=== PATIENT | female | born 1970 | race Caucasian/White ===

== ENCOUNTER 2016-09-28 08:17 | Emergency (ER) | payer MEDICAID ==
[~2016-09-28] VITALS: Wt 69.0 kg
[~2016-09-28 08:17] MED LIST: BENA10TA48 PO; CHOL50009 PO; FER325 PO; GLIP5TAB13 PO; LEVO100T87 PO; RANI150T9 PO
[2016-09-28] MEDS ORDERED: KETOROLAC 30 MG INJ IV STA (08:47)
[2016-09-28] MEDS ORDERED: ONDANSETRON 4 MG INJ IV STA (08:47)
[2016-09-28] MEDS ORDERED: SOD CHLORIDE 0.9% 1,000 ML IV STA (08:47)
--- NOTE | 2016-09-28 08:48 | ERD ---
ER Documentation Chief Complaint Date/Time DATE: 09/28/16 TIME: 08:48 Chief Complaint nausea and vomiting intermittent diarrhea for the past few days. HPI This is a 46-year-old female that has noted history of hypertension, dyslipidemia, who indicates she ran out of her benazepril 10 mg daily prescription, 3 days prior to arrival. She however denies a headache or chest pain. She has been experiencing right upper quadrant pain with intermittent nausea nonbloody nonbilious emesis for the past 48 hours. She denies any shortness of breath at rest or exertion. The patient had a previous surgical intervention roughly 20 years prior to arrival for the patient stated she is unsure why the surgery occurred but she had a suspected infection with no colostomy. The patient also has a known history of hemorrhoids but denies any hemoptysis hematemesis or melanotic stools. She has no polyuria polydipsia. She has had no fevers or shaking or chills. She denies any frequency urgency or dysuria ROS All systems reviewed and are negative except as per history of present illness. Medications Home Meds Active Scripts Benazepril Hcl* (Benazepril Hcl*) 10 Mg Tablet, 10 MG PO DAILY, #30 TAB Prov:KAYE OABNDO 09/28/16 Azithromycin* (Zithromax*) 250 Mg Tablet, 250 MG PO .PARMINDER DIRECTED, #6 TAB TAKE 500 MG (2 TABS) THE FIRST DAY THEN 250 MG (1 TAB) DAYS 2-5 Prov:KAYE OBANDO 09/28/16 Glipizide* (Glipizide*) 5 Mg Tablet, 5 MG PO AC BREAKFAST for 30 Days, TAB Prov:ROS PRITCHETT NP 04/20/16 Ranitidine Hcl* (Zantac*) 150 Mg Tablet, 150 MG PO BID Y for EPIGASTRIC PAIN, # 30 TAB Prov:BHASKAR HOWARD DO 04/15/16 Reported Medications Ferrous Sulfate* (Ferrous Sulfate*) 325 Mg Tabec, 325 MG PO BID, TAB 03/11/16 Cholecalciferol* (Vitamin D*) 5,000 Unit Tablet, 5000 UNIT PO DAILY, TAB 01/01/16 Benazepril Hcl* (Benazepril Hcl*) 10 Mg Tablet, 10 MG PO DAILY, #30 TAB 01/01/16 Levothyroxine Sodium* (Levothyroxine Sodium*) 100 Mcg Tablet, 100 MCG PO BEFORE BREAKFAST, #30 TAB 01/01/16 Allergies Allergies: Coded Allergies: No Known Allergy (Unverified , 04/15/16) PMhx/Soc Medical and Surgical Hx: pt denies Medical Hx History of Surgery: Yes (23 yrs ago - intestinal Sx) Anesthesia Reaction: No Hx Neurological Disorder: No Hx Respiratory Disorders: No Hx Cardiac Disorders: No Hx Psychiatric Problems: No Hx Miscellaneous Medical Probl: No Hx Alcohol Use: Yes (socially) Hx Substance Use: No Hx Tobacco Use: No Smoking Status: Never smoker Physical Exam Vitals Vital Signs Date Time Temp Pulse Resp B/P Pulse Ox O2 Delivery O2 Flow Rate FiO2 09/28/16 11:40 78 19 134/95 100 Room Air 09/28/16 10:24 86 136/76 09/28/16 10:00 172/94 09/28/16 09:13 84 179/88 09/28/16 08:19 98.9 93 20 169/81 98 Physical Exam Constitutional:Well-developed. Well-nourished. HEENT:Normocephalic. Atraumatic.Pupils were equal round reactive to light. Moist mucous membranes.No tonsillar exudates. Neck: No nuchal rigidity. No lymphadenopathy. No posterior cervical spine tenderness or step-offs. Respiratory: Not using accessory muscles of respiration.Lungs were clear to auscultation bilaterally. No rhonchi. No rales. No wheezing. Cardiovascular: Regular rate regular rhythm.No murmurs. No rubs were appreciated.S1, S2 normal. Distal pulses are palpable 2+ bilaterally. GI: Abdomen was soft. Mild tenderness in the right upper quadrant negative Nguyen sign. Previous surgical incisions are below the umbilicus Non Distended. No pulsatile abdominal masses or bruits. No rebound. No guarding. Bowel sounds were present and normal. Muscle skeletal: Full range of motion of both the upper and lower extremities bilaterally.Normal muscle tone.No assymetrical calf tenderness or swelling. Skin: No petechia, no purpura. No lesions on the palms or the soles of the feet. No maculopapular rash. NEURO: Patient was alert, awake, orientated x3.No facial droop. Gait observed and normal with no ataxia.Speech had regular rate and rhythm. No focal neurological deficits. Result Diagram: 09/28/1690409/28/16904 Results 24 hrs Laboratory Tests Test 09/28/16 09:05 09/28/16 09:10 White Blood Count 9.410^3/ul Red Blood Count 5.0610^6/ul Hemoglobin 13.3g/dl Hematocrit 42.1% Mean Corpuscular Volume 83.2fl Mean Corpuscular Hemoglobin 26.3pg Mean Corpuscular Hemoglobin Concent 31.6g/dl Red Cell Distribution Width 14.5% Platelet Count 55313^3/UL Mean Platelet Volume 9.0fl Neutrophils % 72.2% Lymphocytes % 20.2% Monocytes % 5.0% Eosinophils % 1.7% Basophils % 0.4% Nucleated Red Blood Cells % 0.0/100WBC Neutrophils # 6.810^3/ul Lymphocytes # 1.910^3/ul Monocytes # 0.510^3/ul Eosinophils # 0.210^3/ul Basophils # 0.010^3/ul Nucleated Red Blood Cells # 0.010^3/ul Sodium Level 138mmol/L Potassium Level 3.9mmol/L Chloride Level 100mmol/L Carbon Dioxide Level 25mmol/L Anion Gap 17 Blood Urea Nitrogen 16mg/dl Creatinine 0.57mg/dl Glucose Level 139mg/dl Calcium Level 9.0mg/dl Total Bilirubin 0.6mg/dl Direct Bilirubin 0.00mg/dl Indirect Bilirubin 0.6mg/dl Aspartate Amino Transf (AST/SGOT) 100IU/L Alanine Aminotransferase (ALT/SGPT) 105IU/L Alkaline Phosphatase 189IU/L Troponin I < 0.012ng/ml Total Protein 8.2g/dl Albumin 4.3g/dl Globulin 3.90g/dl Albumin/Globulin Ratio 1.10 Amylase Level 166U/L Lipase 217U/L Ethyl Alcohol Level < 10.0mg/dl Urine Color LT. YELLOW Urine Clarity CLEAR Urine pH 6.0 Urine Specific [place] <=1.005 Urine Ketones NEGATIVE Urine Nitrite NEGATIVE Urine Bilirubin NEGATIVE Urine Urobilinogen 0.2 E.U./dL Urine Leukocyte Esterase TRACE Urine Microscopic RBC 2-5/HPF Urine Microscopic WBC 0-2/HPF Urine Squamous Epithelial Cells FEW Urine Bacteria FEW Urine Hemoglobin 1+ Urine Glucose NEGATIVE% Urine Total Protein NEGATIVE Current Medications Medications (Trade) Dose Ordered Sig/Carri Route PRN Reason Start Time Stop Time Status Last Admin Dose Admin Sodium Chloride (NS) 1,000 ml @ 1,000 mls/hr Q1H STAT IV 09/28/16 08:47 09/28/16 09:46 DC 09/28/16 09:08 Ondansetron HCl (Zofran Inj) 4 mg ONCE STAT IV 09/28/16 08:47 09/28/16 08:50 DC 09/28/16 09:08 Ketorolac Tromethamine (Toradol) 30 mg ONCE STAT IV 09/28/16 08:47 09/28/16 08:50 DC 09/28/16 09:08 Labetalol HCl (Labetalol) 10 mg ONCE ONCE IV 09/28/16 09:30 09/28/16 09:31 Cancel Clonidine (Catapres) 0.1 mg ONCE ONCE PO 09/28/16 09:30 09/28/16 09:31 DC 09/28/16 09:16 Procedures/MDM The patient presented to the emergency department with epigastric pain. My differential diagnosis included but was not limited to abdominal aortic aneurysm , choledocholithiasis, gallstone ileus, renal colic, pyelonephritis, pancreatitis, peptic ulcer disease, atypical myocardical infarction, mesenteric ischemia, GERD, pulmonary infarction. The patient was placed on a cardiac technologist, continuous pulse oximetry and IV access was established by nursing staff. An EKG was obtained to rule out myocardial ischemia. There was no elevation of LFTs to suggest ductal obstruction, cholangitis, cholecystiitis or hepatitis. Given that the urinalysis did not show bilirubinuria, my suspicion for common duct obstruction or hepatitis was low. 12 Lead EKG tracing ordered and reviewed by myself showed: Sinus bradycardia 47 bpm and no arrhythmia. CA interval normal. QRS duration normal. No ST segment elevation No ST segment depression. No changes consistent with acute ischemia. I obtained an ultrasound of the gallbladder reviewed by the radiologist myself which indicated there is no evidence of cholelithiasis. The patient received IV fluids and intravenous morphine and Zofran for analgesic control. Observation Note: Time: 4 hours Family Hx: No Hypertension Evaluation: Multiple exams showed improving symptoms and no evidence of peritoneal signs that could suggest a surgical abdomen. Her pain is completely resolved at the time of discharge. The patient also had an episode of hypotension in the emergency department but no signs of endorgan damage to suggest hypertensive emergency or urgency. She was given clonidine with resolution of her blood pressure The patient was discharged home in fair condition. They were instructed to return to the emergency department at any time if there was any worsening of their condition. The patient stated they would follow up with their PCP in the next 24-48 hours to initiate a suitable medication regimen under the care of their PCP as well as to allow their PCP to monitor any drug reactions. The patient was discharged home with prescriptions after they gave informed consent to the new medication. They were also fully informed by myself on the adverse effects and adverse drug interactions in order to provide adequate safeguards to prevent possible adverse reactions to medications. Patient was given a medication refill of her benazepril Departure Diagnosis: Primary Impression: Nausea and vomiting Vomiting type: unspecified Vomiting Intractability: non-intractable Qualified Code: R11.2 - Non-intractable vomiting with nausea, unspecified vomiting type Additional Impressions: Epigastric abdominal pain Medication refill Condition: Fair KAYE OBANDO Sep 28, 2016 08:48
[2016-09-28 09:24] LABS: BASOPHILS % 0.4 % (0.0-2.0); EOSINOPHILS # 0.2 10^3/ul (0.0-0.5); EOSINOPHILS % 1.7 % (0.0-7.0); HEMATOCRIT 42.1 % (37.0-47.0); HEMOGLOBIN 13.3 g/dl (12.0-16.0); LYMPHOCYTES # 1.9 10^3/ul (0.8-2.9); LYMPHOCYTES % 20.2 % (15.0-51.0); MEAN CORPUSCULAR HEMOGLOBIN 26.3 pg (29.0-33.0); MEAN CORPUSCULAR HGB CONC 31.6 g/dl (32.0-37.0); MEAN CORPUSCULAR VOLUME 83.2 fl (82.0-101.0); MONOCYTE # 0.5 10^3/ul (0.3-0.9); NEUTROPHIL # 6.8 10^3/ul (1.6-7.5); NEUTROPHILS % 72.2 % (39.0-77.0); PLATELET COUNT 226 10^3/UL (140-415); RED BLOOD COUNT 5.06 10^6/ul (4.20-5.40); RED CELL DISTRIBUTION WIDTH 14.5 % (11.5-14.5); WHITE BLOOD COUNT 9.4 10^3/ul (4.8-10.8)
[2016-09-28 09:25] LABS: ADD SCAN DIFF NO
[2016-09-28] MEDS ORDERED: LABETALOL HCL 20MG INJ IV ONE (09:30)
[2016-09-28 09:34] LABS: ADD UMIC YES; URINE BILIRUBIN (Dip) NEGATIVE (NEGATIVE); URINE BLOOD (Dip) 1+ (NEGATIVE); URINE COLOR LT. YELLOW (YELLOW); URINE GLUCOSE (Dip) NEGATIVE (NEGATIVE); URINE KETONES (Dip) NEGATIVE (NEGATIVE); URINE LEUKOCYTE ESTERASE (Dip) TRACE (NEGATIVE); URINE NITRITE (Dip) NEGATIVE (NEGATIVE); URINE TOTAL PROTEIN (Dip) NEGATIVE (NEGATIVE); URINE UROBILINOGEN (Dip) 0.2 E.U./dL (0.1-1.0)
[2016-09-28 09:35] LABS: ALBUMIN 4.3 g/dl (3.3-4.9); CHLORIDE 100 mmol/L (97-110)
[2016-09-28 09:36] LABS: POTASSIUM 3.9 mmol/L (3.5-5.1); SODIUM 138 mmol/L (135-144)
[2016-09-28 09:38] LABS: AMYLASE 166 U/L (11-123); ANION GAP 17 (8-16); BILIRUBIN,INDIRECT 0.6 mg/dl (0-1.1); BILIRUBIN,TOTAL 0.6 mg/dl (0.2-1.3); CARBON DIOXIDE 25 mmol/L (21-31); CREATININE 0.57 mg/dl (0.44-1.00)
[2016-09-28 09:39] LABS: ALANINE AMINOTRANSFERASE 105 IU/L (13-69); ALKALINE PHOSPHATASE 189 IU/L (42-121); ASPARTATE AMINO TRANSFERASE 100 IU/L (15-46); BLOOD UREA NITROGEN 16 mg/dl (7-20); GLUCOSE 139 mg/dl (70-220); TOTAL PROTEIN 8.2 g/dl (6.1-8.1)
--- NOTE | 2016-09-28 09:44 | RADRPT ---
PROCEDURE: Right upper quadrant abdominal ultrasound. CLINICAL INDICATION: Abdominal pain TECHNIQUE: Panda scale and color doppler ultrasound images of the right upper quadrant. COMPARISON: CT abdomen pelvis 04/17/2016 FINDINGS: Pancreas: Visualized portions appear of normal echogenicity, no focal lesions. Liver: Morphology: Normal in size and contour. Echogenicity: Increased echogenicity of the liver parenchyma suggestive of hepatic steatosis. Focal lesions: None. Main portal vein: Patent with hepatopetal flow. Biliary System: Normal appearing gallbladder wall. No gallstones seen. No intrahepatic biliary dilatation. Common bile duct measures 3.5 mm in maximal dimension. Kidneys: Right 11.0 cm in length. Right renal cortical thickness is preserved. Normal echogenicity. No hydronephrosis. No renal calculi. No focal lesions. No free fluid identified. IMPRESSION: Normal gallbladder without gallstones. RPTAT: AADD .Martin Wright MD, MD Date Time Electronically viewed and signed by .Martin Wright MD, on 09/28/2016 09:44 .B/
[2016-09-28 09:53] LABS: BACTERIA,URINE FEW; SQUAMOUS EPITHELIAL CELL,UR FEW
[2016-09-28 09:55] LABS: TROPONIN-I < 0.012 ng/ml (0.00-0.12)
[2016-09-28] MEDS ORDERED: AZIT250T94 PO (11:15)
[2016-09-28] MEDS ORDERED: BENA10TA48 PO (11:32)
[2016-09-28 11:40] VITALS: BP 134/95; PULSE 78; RESP 19
== END 2016-09-28 11:12 | disposition home or self-care (01) ==
LOC: FTE 08:17
DX: R11.2 Nausea with vomiting, unspecified (principal); R10.13 Epigastric pain; Z76.0 Encounter for issue of repeat prescription
CPT/HCPCS: 76705; 80053; 80306; 81001; 82150; 83690; 84484; 85025; 87086; 93005; J1885; J2405; J7030; Z7610; 36415; 81003; 96374; 96375

== ENCOUNTER 2016-11-08 22:07 | Emergency (ER) | payer MEDICAID ==
[~2016-11-08] VITALS: Ht 162.6 cm; Wt 72.5 kg
[~2016-11-08 22:07] MED LIST changes: +AZIT250T94 PO
[2016-11-08 22:10] VITALS: Ht 162.6 cm; Wt 72.5 kg
[2016-11-08] MEDS ORDERED: ONDANSETRON 4 MG INJ IV STA ×2 (22:53→23:30)
[2016-11-08] MEDS ORDERED: hydrALAzine 20 MG INJ IV ONE (23:00)
--- NOTE | 2016-11-08 23:28 | RADRPT ---
PROCEDURE: CT Head without. CLINICAL INDICATION: Hypertension, vomiting. TECHNIQUE: The study was performed utilizing a multi-slice, multidetector CT scanner. Direct spira l 1 mm axial sections were obtained through the head without the use of intravenous contrast materia l. 1 or more of the following dose reduction techniques were utilized: Automated exposure control, adjustment of the mA and/or kV according to patient's size, iterative reconstruction technique. Co jacqueline and sagittal reformations were obtained. The images were reviewed on a PACS workstation. RADIATION DOSE: CTDIvol: 44.5 mGyDLP: 720.2 mGy-cm COMPARISON: No prior studies are available for comparison. FINDINGS: There is no intracranial hemorrhage, extra-axial fluid collection, mass lesion, midline shift or hyd rocephalus. The ventricles, sulci and cisterns are within normal limits. The white matter is unrem arkable. The porter-white matter differentiation is preserved. The basal cisterns are patent. The m idline structures are intact. The orbits, calvarium and extracranial soft tissues are normal in [place]. The visualized paranasal sinuses, mastoid air cells and middle ear cavities are normally ae rated. IMPRESSION: 1. No acute intracranial abnormality. No intracranial hemorrhage, extra-axial fluid collection, ma ss lesion or hydrocephalous. RPTAT: HGAS .Evelio Danielle MD, MD Date Time Electronically viewed and signed by .Evelio Danielle MD, MD on 11/08/2016 23:28 .S/
[2016-11-08 23:30] LABS: ADD SCAN DIFF NO
--- NOTE | 2016-11-08 23:30 | RADRPT ---
PROCEDURE: XR Chest. CLINICAL INDICATION: Chest pain. TECHNIQUE: AP view of the chest was obtained. COMPARISON: 04/16/2016 FINDINGS: The cardiomediastinal silhouette is within normal limits. The lungs are clear. No signs of pleural f luid or pneumothorax are seen. The osseous structures and soft tissues are unremarkable. IMPRESSION: 1. No evidence for active cardiopulmonary disease. RPTAT: HGAS .Evelio Danielle MD, MD Date Time Electronically viewed and signed by .Evelio Danielle MD, on 11/08/2016 23:29 .S/
[2016-11-08 23:37] LABS: BASOPHIL # 0.1 10^3/ul (0.0-0.1); BASOPHILS % 0.7 % (0.0-2.0); EOSINOPHILS % 0.4 % (0.0-7.0); HEMATOCRIT 41.5 % (37.0-47.0); HEMOGLOBIN 13.8 g/dl (12.0-16.0); LYMPHOCYTES % 36.6 % (15.0-51.0); MEAN CORPUSCULAR HEMOGLOBIN 25.9 pg (29.0-33.0); MEAN CORPUSCULAR HGB CONC 33.3 g/dl (32.0-37.0); MEAN CORPUSCULAR VOLUME 77.9 fl (82.0-101.0); MEAN PLATELET VOLUME 9.9 fl (7.4-10.4); MONOCYTE # 0.4 10^3/ul (0.3-0.9); MONOCYTES % 4.8 % (0.0-11.0); NEUTROPHIL # 4.7 10^3/ul (1.6-7.5); NEUTROPHILS % 57.3 % (39.0-77.0); PLATELET COUNT 246 10^3/UL (140-415); RED BLOOD COUNT 5.33 10^6/ul (4.20-5.40); RED CELL DISTRIBUTION WIDTH 14.8 % (11.5-14.5); WHITE BLOOD COUNT 8.2 10^3/ul (4.8-10.8)
[2016-11-08 23:52] LABS: ADD UMIC YES; URINE BILIRUBIN (Dip) NEGATIVE (NEGATIVE); URINE BLOOD (Dip) 2+ (NEGATIVE); URINE COLOR LT. YELLOW (YELLOW); URINE GLUCOSE (Dip) NEGATIVE (NEGATIVE); URINE KETONES (Dip) NEGATIVE (NEGATIVE); URINE LEUKOCYTE ESTERASE (Dip) TRACE (NEGATIVE); URINE NITRITE (Dip) NEGATIVE (NEGATIVE); URINE TOTAL PROTEIN (Dip) 1+ (NEGATIVE); URINE UROBILINOGEN (Dip) 1.0 E.U./dL (0.1-1.0)
[2016-11-09 00:29] LABS: SQUAMOUS EPITHELIAL CELL,UR MODERATE
[2016-11-09 00:30] LABS: BACTERIA,URINE OCCASIONAL
[2016-11-09 00:37] LABS: INR 1.2; PROTIME 15.3 Sec (12.2-14.2); PT RATIO 1.2
[2016-11-09 00:38] LABS: PARTIAL THROMBOPLASTIN TIME 27.5 Sec (25.0-35.0)
[2016-11-09 00:47] LABS: ALANINE AMINOTRANSFERASE 181 IU/L (13-69); ALBUMIN 4.4 g/dl (3.3-4.9); ALBUMIN/GLOBULIN RATIO 1.25; ALKALINE PHOSPHATASE 146 IU/L (42-121); ANION GAP 22 (8-16); ASPARTATE AMINO TRANSFERASE 194 IU/L (15-46); BILIRUBIN,INDIRECT 1.1 mg/dl (0-1.1); BILIRUBIN,TOTAL 1.1 mg/dl (0.2-1.3); BLOOD UREA NITROGEN 6 mg/dl (7-20); CALCIUM 8.3 mg/dl (8.4-10.2); CARBON DIOXIDE 21 mmol/L (21-31); CHLORIDE 98 mmol/L (97-110); CREATININE 0.51 mg/dl (0.44-1.00); GLUCOSE 193 mg/dl (70-220); POTASSIUM 3.5 mmol/L (3.5-5.1); SODIUM 137 mmol/L (135-144); TOTAL PROTEIN 7.9 g/dl (6.1-8.1)
[2016-11-09 00:55] LABS: B-TYPE NATRIURETIC PEPTIDE 30 PG/ML (0-125); TROPONIN-I < 0.012 ng/ml (0.00-0.12)
[2016-11-09] MEDS ORDERED: METOCLOPRAMIDE 10 MG INJ IV ONE (01:00)
--- NOTE | 2016-11-09 02:14 | ERD ---
ER Documentation Chief Complaint Date/Time DATE: 11/09/16 TIME: 02:13 Chief Complaint hypertension, vomiting x 2 days HPI This is a 46-year-old female comes in because of hypertension and vomiting for 2 days. She admits drinking alcohol. Denies any chest pain. Denies any fevers or chills. Denies any other current issues. ROS All systems reviewed and are negative except as per history of present illness. Medications Home Meds Reported Medications Benazepril Hcl* (Benazepril Hcl*) 10 Mg Tablet, 10 MG PO DAILY, #30 TAB 01/01/16 Discontinued Reported Medications Ferrous Sulfate* (Ferrous Sulfate*) 325 Mg Tabec, 325 MG PO BID, TAB 03/11/16 Cholecalciferol* (Vitamin D*) 5,000 Unit Tablet, 5000 UNIT PO DAILY, TAB 01/01/16 Levothyroxine Sodium* (Levothyroxine Sodium*) 100 Mcg Tablet, 100 MCG PO BEFORE BREAKFAST, #30 TAB 01/01/16 Discontinued Scripts Benazepril Hcl* (Benazepril Hcl*) 10 Mg Tablet, 10 MG PO DAILY, #30 TAB Prov:KAYE OBANDO 09/28/16 Azithromycin* (Zithromax*) 250 Mg Tablet, 250 MG PO .ZPACK DIRECTED, #6 TAB TAKE 500 MG (2 TABS) THE FIRST DAY THEN 250 MG (1 TAB) DAYS 2-5 Prov:KAYE OBANDO 09/28/16 Glipizide* (Glipizide*) 5 Mg Tablet, 5 MG PO AC BREAKFAST for 30 Days, TAB Prov:ROS PRITCHETT NP 04/20/16 Ranitidine Hcl* (Zantac*) 150 Mg Tablet, 150 MG PO BID Y for EPIGASTRIC PAIN, # 30 TAB Prov:BHASKAR HOWARD DO 04/15/16 Allergies Allergies: Coded Allergies: No Known Allergy (Unverified , 11/08/16) PMhx/Soc History of Surgery: Yes (23 yrs ago - intestinal Sx) Anesthesia Reaction: No Hx Neurological Disorder: No Hx Respiratory Disorders: No Hx Cardiac Disorders: No Hx Psychiatric Problems: No Hx Miscellaneous Medical Probl: No Hx Alcohol Use: Yes (socially) Hx Substance Use: No Hx Tobacco Use: No Smoking Status: Never smoker Physical Exam Vitals Vital Signs Date Time Temp Pulse Resp B/P Pulse Ox O2 Delivery O2 Flow Rate FiO2 11/09/16 00:35 98.8 80 20 133/80 98 Room Air 11/08/16 22:10 98.8 124 20 218/110 98 Physical Exam Const: [] Head: Atraumatic Eyes: Normal Conjunctiva ENT: Normal External Ears, Nose and Mouth. Neck: Full range of motion..~ No meningismus. Resp: Clear to auscultation bilaterally Cardio: Regular rate and rhythm, no murmurs Abd: Soft, non tender, non distended. Normal bowel sounds Skin: No petechiae or rashes Back: No midline or flank tenderness Ext: No cyanosis, or edema Neur: Awake and alert Psych: Normal Mood and Affect Result Diagram: 11/08/16 2300 11/09/16 0002 Results 24 hrs Laboratory Tests Test 11/08/16 22:45 11/08/16 23:00 11/09/16 00:02 Urine Color LT. YELLOW Urine Clarity SL HAZY Urine pH 8.5 Urine Specific [place] 1.010 Urine Ketones NEGATIVE Urine Nitrite NEGATIVE Urine Bilirubin NEGATIVE Urine Urobilinogen 1.0 E.U./dL Urine Leukocyte Esterase TRACE Urine Microscopic RBC 2-5/HPF Urine Microscopic WBC 2-5/HPF Urine Squamous Epithelial Cells MODERATE Urine Bacteria OCCASIONAL Urine Hemoglobin 2+ Urine Glucose NEGATIVE% Urine Total Protein 1+ White Blood Count 8.210^3/ul Red Blood Count 5.3310^6/ul Hemoglobin 13.8g/dl Hematocrit 41.5% Mean Corpuscular Volume 77.9fl Mean Corpuscular Hemoglobin 25.9pg Mean Corpuscular Hemoglobin Concent 33.3g/dl Red Cell Distribution Width 14.8% Platelet Count 06443^3/UL Mean Platelet Volume 9.9fl Neutrophils % 57.3% Lymphocytes % 36.6% Monocytes % 4.8% Eosinophils % 0.4% Basophils % 0.7% Nucleated Red Blood Cells % 0.0/100WBC Neutrophils # 4.710^3/ul Lymphocytes # 3.010^3/ul Monocytes # 0.410^3/ul Eosinophils # 0.010^3/ul Basophils # 0.110^3/ul Nucleated Red Blood Cells # 0.010^3/ul Prothrombin Time 15.3Sec Prothrombin Time Ratio 1.2 INR International Normalized Ratio 1.20 Activated Partial Thromboplast Time 27.5Sec Sodium Level 137mmol/L Potassium Level 3.5mmol/L Chloride Level 98mmol/L Carbon Dioxide Level 21mmol/L Anion Gap 22 Blood Urea Nitrogen 6mg/dl Creatinine 0.51mg/dl Glucose Level 193mg/dl Calcium Level 8.3mg/dl Total Bilirubin 1.1mg/dl Direct Bilirubin 0.00mg/dl Indirect Bilirubin 1.1mg/dl Aspartate Amino Transf (AST/SGOT) 194IU/L Alanine Aminotransferase (ALT/SGPT) 181IU/L Alkaline Phosphatase 146IU/L Troponin I < 0.012ng/ml B-Type Natriuretic Peptide 30PG/ML Total Protein 7.9g/dl Albumin 4.4g/dl Globulin 3.50g/dl Albumin/Globulin Ratio 1.25 Current Medications Medications (Trade) Dose Ordered Sig/Carri Route PRN Reason Start Time Stop Time Status Last Admin Dose Admin Hydralazine HCl (Apresoline) 20 mg ONCE ONCE IV 11/08/16 23:00 11/08/16 23:01 DC 11/08/16 23:01 Ondansetron HCl (Zofran Inj) 4 mg ONCE STAT IV 11/08/16 22:53 11/08/16 22:54 DC 11/08/16 23:00 Ondansetron HCl (Zofran Inj) 4 mg ONCE STAT IV 11/08/16 23:30 11/08/16 23:31 DC 11/08/16 23:41 Metoclopramide HCl (Reglan) 10 mg ONCE ONCE IV 11/09/16 01:00 11/09/16 01:01 DC 11/09/16 00:53 Procedures/MDM EKG: Rate/Rhythm: Normal Sinus Rhythm QRS, ST, T-waves: No changes consistent w/ acute ischemia Impression: No evidence of ischemia or arrhythmia Chest X-ray 1V Interpreted by me: Soft Tissue: No acute abnormalities Bones: No acute abnormalities Mediastinum/Cardiac Silhouette/Lungs: No acute abnormalities Patient's blood pressure was elevated (>120/80) but appears stable without evidence of hypertension emergency or urgency. The patient was counseled about the risks of hypertension and urged to pursue outpatient monitoring and therapy within a week with their primary care physician. Departure Diagnosis: Primary Impression: Hypertension Hypertension type: essential hypertension Qualified Code: I10 - Essential hypertension Condition: Stable Patient Instructions: High Blood Pressure (Hypertension) MAY MORALES November 09, 2016 02:14
[2016-11-09 02:20] VITALS: BP 133/88; PULSE 88; RESP 16; TEMP 98.6
[2016-11-09] MEDS ORDERED: ALPR1TAB2 PO (18:43)
== END 2016-11-09 02:23 | disposition home or self-care (01) ==
LOC: E/R 22:07
DX: I10 Essential (primary) hypertension (principal); R07.9 Chest pain, unspecified; R93.0 Abnormal findings on diagnostic imaging of skull and head, not elsewhere classified
CPT/HCPCS: 36415; 70450; 71010; 80053; 81001; 83880; 84484; 85025; 85610; 85730; 93005; 96374; 96375; 96376; J0360; J2405; J2765; Z7502; 81003

== ENCOUNTER 2016-11-09 17:37 | Emergency (ER) | payer MEDICAID ==
[~2016-11-09] VITALS: Ht 157.5 cm; Wt 78.0 kg
[~2016-11-09 17:37] MED LIST changes: -AZIT250T94 PO; -CHOL50009 PO; -FER325 PO; -GLIP5TAB13 PO; -LEVO100T87 PO; -RANI150T9 PO
[2016-11-09 17:39] VITALS: Ht 157.5 cm; Wt 78.0 kg
[2016-11-09] MEDS ORDERED: ALPR1TAB2 PO (18:43)
--- NOTE | 2016-11-09 19:09 | ERD ---
ER Documentation Chief Complaint Date/Time DATE: 11/09/16 TIME: 19:06 Chief Complaint FEELS DRY/SOUR MOUTHS, ANXIOUS, INSOMNIA HPI 46-year-old female presents to emergency department for complaints of dryness of the mouth, anxiety, insomnia for the last 2 days. Patient was seen here in emergency department yesterday, had a full workup done, for her vomiting and elevated blood pressure, cardiac workup was negative, CT scan of the brain was also negative. Patient is here today since she feels anxious and dryness of the mouth and insomnia. Patient denies chest pain palpitations. Patient denies any dizziness. Patient denies any headache. Patient denies any loss of consciousness. Patient denies any other symptoms. Patient denies suicidal or homicidal ideations. ROS All systems reviewed and are negative except as per history of present illness. Medications Home Meds Active Scripts Alprazolam* (Xanax*) 1 Mg Tab, 1 MG PO Q8H Y for ANXIETY, #5 TAB Prov:LA COX NP 11/09/16 Reported Medications Benazepril Hcl* (Benazepril Hcl*) 10 Mg Tablet, 10 MG PO DAILY, #30 TAB 01/01/16 Discontinued Reported Medications Ferrous Sulfate* (Ferrous Sulfate*) 325 Mg Tabec, 325 MG PO BID, TAB 03/11/16 Cholecalciferol* (Vitamin D*) 5,000 Unit Tablet, 5000 UNIT PO DAILY, TAB 01/01/16 Levothyroxine Sodium* (Levothyroxine Sodium*) 100 Mcg Tablet, 100 MCG PO BEFORE BREAKFAST, #30 TAB 01/01/16 Discontinued Scripts Benazepril Hcl* (Benazepril Hcl*) 10 Mg Tablet, 10 MG PO DAILY, #30 TAB Prov:KAYE OBANDO 09/28/16 Azithromycin* (Zithromax*) 250 Mg Tablet, 250 MG PO .PARMINDER DIRECTED, #6 TAB TAKE 500 MG (2 TABS) THE FIRST DAY THEN 250 MG (1 TAB) DAYS 2-5 Prov:KAYE OBANDO 09/28/16 Glipizide* (Glipizide*) 5 Mg Tablet, 5 MG PO AC BREAKFAST for 30 Days, TAB Prov:ROS PRITCHETT NP 04/20/16 Ranitidine Hcl* (Zantac*) 150 Mg Tablet, 150 MG PO BID Y for EPIGASTRIC PAIN, # 30 TAB Prov:BHASKAR HOWARD DO 04/15/16 Allergies Allergies: Coded Allergies: No Known Allergy (Unverified , 11/08/16) PMhx/Soc History of Surgery: Yes (23 yrs ago - intestinal Sx) Anesthesia Reaction: No Hx Neurological Disorder: No Hx Respiratory Disorders: No Hx Cardiac Disorders: No Hx Psychiatric Problems: No Hx Miscellaneous Medical Probl: No Hx Alcohol Use: Yes (socially) Hx Substance Use: No Hx Tobacco Use: No FmHx Family History: No coronary disease, No diabetes, No other Physical Exam Vitals Vital Signs Date Time Temp Pulse Resp B/P Pulse Ox O2 Delivery O2 Flow Rate FiO2 11/09/16 17:39 98.1 90 18 150/78 99 Physical Exam GENERAL: The patient is well developed and appropriate for usual state of health, in no apparent distress. CHEST: Clear to auscultation bilaterally. There are no rales, wheezes or rhonchi. HEART: Regular rate and rhythm. No murmurs, clicks, rubs or gallops. No S3 or S4. ABDOMEN: Soft, nontender and nondistended. Good bowel sounds. No rebound or guarding. No gross peritonitis. No gross organomegaly or masses. No Nguyen sign or McBurney point tenderness. BACK: No midline or flank tenderness. EXTREMITIES: Equal pulses bilaterally. There is no peripheral clubbing, cyanosis or edema. No focal swelling or erythema. Full range of motion. Grossly neurovascularly intact. NEURO: Alert and oriented. Cranial nerves 2-12 intact. Motor strength in all 4 extremities with 5/5 strength. Sensation grossly intact. Normal speech and gait. SKIN: There is no apparent rash or petechia. The skin is warm and dry. HEMATOLOGIC AND LYMPHATIC: There is no evidence of excessive bruising or lymphedema. No gross cervical, axillary, or inguinal lymphadenopathy. PSYCHIATRIC: Patient appears anxious, cooperative, no verbalized homicidal or suicidal ideations. Procedures/MDM Medical decision making: Patient symptoms is likely consistent with anxiety. At this time, no symptoms of respiratory stress, cardiopulmonary emergencies, neurologic emergencies. no symptoms of psychiatric emergencies at this time, not verbalized homicidal or suicidal ideations. Considering that patient has a normal workup yesterday, today has feelings of anxiety and anxiousness insomnia , most likely symptoms from yesterday and today's consistent with anxiety, patient is advised to see adolescent medicine specialist for further evaluation, patient was given 5 pills of Xanax tablets symptoms. Patient is advised to return to emergency department for any worsening symptoms. Given resources for possible primary care evaluation. Departure Diagnosis: Primary Impression: Anxiety Condition: Stable Patient Instructions: Anxiety Reaction Referrals: [facility] Usted se parrish hecho un examen mdico de control que le indica que no est en amber condicin que requiera tratamiento urgente en el Departamento de Emergencia. Un estudio ms profundo y el tratamiento de miller condicin pueden esperar sin ningn riesgo hasta que usted sea atendida/o en el consultorio de miller mdico o amber cl chavo. Es responsabilidad suya arreglar amber davian para el seguimiento del mario. MANEJO DE CONDICIONES NO URGENTES EN EL FUTURO 1) Si usted tiene un mdico de atencin primaria: Usted debera llamar a miller mdico de atencin primaria antes de venir al departamento de emergencia. Despus de las horas de consultorio, miller doctor o miller asociado/a est disponible por telfono. El mdico o enfermero de nick en el servicio telefnico puede asesorarle por meredith medio para atender el problema, o mario contrario se puede programar amber davian. 2) Si usted no tiene un mdico de atencin primaria: Llame al mdico o clnica de referencia que aparece abajo gigi las horas de consultorio para hacer amber davian para que le vean. CLINICAS: [facility] [phone] [address] [facility] 663 [phone] [address] [facility] [phone] [facility] 831 [phone] [address] [facility] 357 [phone] [address] [facility] [phone] [address] [facility] [facility]. [facility] () Usted se parrish hecho un examen mdico de control que le indica que no est en amber condicin que requiera tratamiento urgente en el Departamento de Emergencia. Un estudio ms profundo y el tratamiento de miller condicin pueden esperar sin ningn riesgo hasta que usted sea atendida/o en el consultorio de miller mdico o amber cl chavo. Es responsabilidad suya arreglar amber davian para el seguimiento del mario. MANEJO DE CONDICIONES NO URGENTES EN EL FUTURO 1) Si usted tiene un mdico de atencin primaria: Usted debera llamar a miller mdico de atencin primaria antes de venir al departamento de emergencia. Despus de las horas de consultorio, miller doctor o miller asociado/a est disponible por telfono. El mdico o enfermero de nick en el servicio telefnico puede asesorarle por meredith medio para atender el problema, o mario contrario se puede programar amber davian. 2) Si usted no tiene un mdico de atencin primaria: Llame al mdico o condado institucions de referencia que aparece abajo gigi las horas de consultorio para hacer amber davian para que le vean. SI USTED NO PUEDE PAGAR PARA YI UN MEDICO puede ir a: [facility] [address] [place] [address] [facility] [address] [place] [address] [facility] [address] [place] [address] [facility] [address] [place] [address] CUISTOMAS,LA Clark NP November 09, 2016 19:09
== END 2016-11-09 18:59 | disposition home or self-care (01) ==
LOC: FTE 17:37 → E/R 18:59
DX: F41.9 Anxiety disorder, unspecified (principal)
CPT/HCPCS: 99283

== ENCOUNTER 2016-12-30 03:35 | Emergency (ER) | payer MEDICAID ==
[~2016-12-30] VITALS: Ht 157.5 cm; Wt 74.0 kg
[~2016-12-30 03:35] MED LIST changes: +ALPR1TAB2 PO
[2016-12-30 03:44] VITALS: Ht 157.5 cm; Wt 74.0 kg
[2016-12-30] MEDS ORDERED: OLANZAPINE 5 MG TAB PO ONE (06:00)
[2016-12-30 06:17] LABS: BASOPHIL # 0.1 10^3/ul (0.0-0.1); BASOPHILS % 0.7 % (0.0-2.0); EOSINOPHILS # 0.2 10^3/ul (0.0-0.5); EOSINOPHILS % 3.5 % (0.0-7.0); HEMATOCRIT 37.9 % (37.0-47.0); HEMOGLOBIN 12.3 g/dl (12.0-16.0); LYMPHOCYTES # 1.8 10^3/ul (0.8-2.9); LYMPHOCYTES % 26.8 % (15.0-51.0); MEAN CORPUSCULAR HEMOGLOBIN 26.2 pg (29.0-33.0); MEAN CORPUSCULAR HGB CONC 32.5 g/dl (32.0-37.0); MEAN CORPUSCULAR VOLUME 80.8 fl (82.0-101.0); MEAN PLATELET VOLUME 9.1 fl (7.4-10.4); MONOCYTE # 0.5 10^3/ul (0.3-0.9); MONOCYTES % 6.6 % (0.0-11.0); NEUTROPHIL # 4.2 10^3/ul (1.6-7.5); NEUTROPHILS % 61.8 % (39.0-77.0); PLATELET COUNT 196 10^3/UL (140-415); RED BLOOD COUNT 4.69 10^6/ul (4.20-5.40); RED CELL DISTRIBUTION WIDTH 15.5 % (11.5-14.5); WHITE BLOOD COUNT 6.9 10^3/ul (4.8-10.8)
[2016-12-30 06:40] LABS: ALANINE AMINOTRANSFERASE 110 IU/L (13-69); ALBUMIN/GLOBULIN RATIO 1.56; ALKALINE PHOSPHATASE 180 IU/L (42-121); ANION GAP 16 (8-16); ASPARTATE AMINO TRANSFERASE 105 IU/L (15-46); BILIRUBIN,INDIRECT 0.5 mg/dl (0-1.1); BILIRUBIN,TOTAL 0.5 mg/dl (0.2-1.3); BLOOD UREA NITROGEN 15 mg/dl (7-20); CALCIUM 9.8 mg/dl (8.4-10.2); CARBON DIOXIDE 25 mmol/L (21-31); CHLORIDE 101 mmol/L (97-110); CREATININE 0.62 mg/dl (0.44-1.00); GLUCOSE 141 mg/dl (70-220); POTASSIUM 3.7 mmol/L (3.5-5.1); SODIUM 138 mmol/L (135-144); TOTAL PROTEIN 8.2 g/dl (6.1-8.1)
[2016-12-30 06:41] LABS: ACETAMINOPHEN < 10.0 ug/ml (10.0-30.0); ETHANOL < 10.0 mg/dl; SALICYLATE < 1.0 mg/dl (5.0-30.0)
[2016-12-30 06:51] LABS: ADD UMIC YES; UR BILIRUBIN (Dip) NEGATIVE (NEGATIVE); UR BLOOD (Dip) 2+ (NEGATIVE); UR CLARITY CLEAR (CLEAR); UR COLOR LT. YELLOW (YELLOW); UR GLUCOSE (Dip) NEGATIVE (NEGATIVE); UR KETONES (Dip) NEGATIVE (NEGATIVE); UR LEUKOCYTE ESTERASE (Dip) 1+ (NEGATIVE); UR NITRITE (Dip) NEGATIVE (NEGATIVE); UR TOTAL PROTEIN (Dip) NEGATIVE (NEGATIVE); UR UROBILINOGEN (Dip) 0.2 E.U./dL (0.1-1.0)
[2016-12-30 07:13] LABS: BARBITURATES Negative (NEGATIVE); BENZODIAZEPINES Negative (NEGATIVE); CANNABINOIDS Negative (NEGATIVE); COCAINE Negative (NEGATIVE); OPIATES Negative (NEGATIVE)
[2016-12-30 07:16] LABS: UR SQUAMOUS EPITHELIAL CELL OCCASIONAL /HPF (FEW)
[2016-12-30 07:25] LABS: ADD SCAN DIFF NO
--- NOTE | 2016-12-30 08:47 | ERD ---
ER Documentation Chief Complaint Date/Time DATE: 12/30/16 TIME: 08:40 Chief Complaint hearing voices - hearing conversation and bothering her, denies HI/SI HPI This 46-year-old female comes emergency room because she is distressed because she is hearing voices. She denies that the voices are telling her to kill herself or others. She will not tell me what the voices are saying. States that she is not taking any medications currently but she should be. She was not willing to provide much more of a history than this. She does deny any physical pain or physical symptoms. States that she is here only for the voices. He denies fever chills pain. ROS All systems reviewed and are negative except as per history of present illness. Medications Home Meds Active Scripts Alprazolam* (Xanax*) 1 Mg Tab, 1 MG PO Q8H Y for ANXIETY, #5 TAB Prov:LA COX TANK WASHER 11/09/16 Reported Medications Benazepril Hcl* (Benazepril Hcl*) 10 Mg Tablet, 10 MG PO DAILY, #30 TAB 01/01/16 Allergies Allergies: Coded Allergies: No Known Allergy (Unverified , 11/08/16) PMhx/Soc Medical and Surgical Hx: pt denies Medical Hx, pt denies Surgical Hx History of Surgery: Yes (23 yrs ago - intestinal Sx) Anesthesia Reaction: No Hx Neurological Disorder: No Hx Respiratory Disorders: No Hx Cardiac Disorders: No Hx Psychiatric Problems: No Hx Miscellaneous Medical Probl: No Hx Alcohol Use: No Hx Substance Use: No Hx Tobacco Use: No Smoking Status: Never smoker Physical Exam Vitals Vital Signs Date Time Temp Pulse Resp B/P Pulse Ox O2 Delivery O2 Flow Rate FiO2 12/30/16 03:44 97.8 86 20 195/104 100 Physical Exam Const: [] No distress Head: Atraumatic Eyes: Normal Conjunctiva ENT: Normal External Ears, Nose and Mouth. Neck: Full range of motion..~ No meningismus. Resp: Clear to auscultation bilaterally Cardio: Regular rate and rhythm, no murmurs Abd: Soft, non tender, non distended. Normal bowel sounds Skin: No petechiae or rashes Back: No midline or flank tenderness Ext: No cyanosis, or edema Neur: Awake and alert and oriented 3, no focal deficits Psych: Labile affect, primarily flat affect. Result Diagram: 12/30/16 0545 12/30/16 0545 Results 24 hrs Laboratory Tests Test 12/30/16 05:45 White Blood Count 6.910^3/ul Red Blood Count 4.6910^6/ul Hemoglobin 12.3g/dl Hematocrit 37.9% Mean Corpuscular Volume 80.8fl Mean Corpuscular Hemoglobin 26.2pg Mean Corpuscular Hemoglobin Concent 32.5g/dl Red Cell Distribution Width 15.5% Platelet Count 00930^3/UL Mean Platelet Volume 9.1fl Neutrophils % 61.8% Lymphocytes % 26.8% Monocytes % 6.6% Eosinophils % 3.5% Basophils % 0.7% Nucleated Red Blood Cells % 0.0/100WBC Neutrophils # 4.210^3/ul Lymphocytes # 1.810^3/ul Monocytes # 0.510^3/ul Eosinophils # 0.210^3/ul Basophils # 0.110^3/ul Nucleated Red Blood Cells # 0.010^3/ul Urine Color LT. YELLOW Urine Clarity CLEAR Urine pH 6.5 Urine Specific [place] <=1.005 Urine Ketones NEGATIVE Urine Nitrite NEGATIVE Urine Bilirubin NEGATIVE Urine Urobilinogen 0.2 E.U./dL Urine Leukocyte Esterase 1+ Urine Microscopic RBC 2-5/HPF Urine Microscopic WBC 2-5/HPF Urine Squamous Epithelial Cells OCCASIONAL/HPF Urine Hemoglobin 2+ Urine Glucose NEGATIVE% Urine Total Protein NEGATIVE Sodium Level 138mmol/L Potassium Level 3.7mmol/L Chloride Level 101mmol/L Carbon Dioxide Level 25mmol/L Anion Gap 16 Blood Urea Nitrogen 15mg/dl Creatinine 0.62mg/dl Glucose Level 141mg/dl Calcium Level 9.8mg/dl Total Bilirubin 0.5mg/dl Direct Bilirubin 0.00mg/dl Indirect Bilirubin 0.5mg/dl Aspartate Amino Transf (AST/SGOT) 105IU/L Alanine Aminotransferase (ALT/SGPT) 110IU/L Alkaline Phosphatase 180IU/L Total Protein 8.2g/dl Albumin 5.0g/dl Globulin 3.20g/dl Albumin/Globulin Ratio 1.56 Salicylates Level < 1.0mg/dl Urine Opiates Screen Negative Acetaminophen Level < 10.0ug/ml Urine Barbiturates Negative Urine Amphetamines Screen Negative Urine Benzodiazepines Screen Negative Urine Cocaine Screen Negative Urine Cannabinoids Negative Ethyl Alcohol Level < 10.0mg/dl Current Medications Medications (Trade) Dose Ordered Sig/Carri Route PRN Reason Start Time Stop Time Status Last Admin Dose Admin Olanzapine (Zyprexa) 10 mg ONCE ONCE PO 12/30/16 06:00 12/30/16 06:01 DC 12/30/16 06:58 Procedures/MDM Female psychiatric history of is currently hearing voices and warrants a psychiatric evaluation. She has 1+ leukocyte esterase but no symptoms of a UTI and further questioning. She has no urinary frequency, dysuria does not believe she has urinary tract infection. Mild elevation of liver enzymes. Otherwise she is currently medically cleared and they do not seem medical condition would preclude her from psychiatric admission if necessary. Psychiatric recommendations will be followed the patient will either be placed on a hold and transferred, transferred voluntarily to psychiatric facility or discharge based on the recommendations. Departure Diagnosis: Primary Impression: Hearing voices Condition: Stable MICHAEL VALENTE DO Dec 30, 2016 08:46
--- NOTE | 2016-12-30 10:26 | PSY ---
Date/Time of Note Date/Time of Note DATE: 12/30/16 TIME: 10:05 Psychiatric Subjective Eval Consent Pt consented to telemedicine: Yes Subjective Evaluation Patient location: emergency Chief Complaint: hearing voices - hearing conversation and bothering her, denies HI/SI Reason for consult: Voices History of present illness 46 year old female with history of alcohol abuse presents with auditory hallucinations. She drinks 10+ drinks of beer and liquor atleast 3 times per week. Her last drink was Monday. Since then, she experienced significant tremor , anxiety, tactile hallucinations, headache. Tremor and tactile hallucinations have improved. Since yesterday she started hearing voices, a conversation that sounds like a running commentary of what she doing, along with music. She hasn' t been able to sleep for three days. She denies SI/HI intent or plan. No overt delusions. No VH or olfactory hallucinations. She received zyprexa 10mg a few hours ago which had little to no effect on voices. Past psychiatric history Denies Hospitalization: no Family History Denies Medical history Problems Medical Problems: (1) Acute back pain Status: Acute (2) Acute pain in female pelvis Status: Acute (3) Alcohol abuse Status: Acute (4) Alcohol withdrawal Status: Acute (5) Ankle fracture, right Status: Acute (6) Anxiety Status: Acute (7) Dyspepsia Status: Acute (8) Epigastric abdominal pain Status: Acute (9) Hearing voices Status: Acute (10) Hypertension Status: Chronic (11) Hypothyroid Status: Chronic (12) Medication refill Status: Acute (13) Nausea and vomiting Status: Acute (14) Rectal bleeding Status: Acute (15) Uncontrolled hypertension Status: Acute (16) Vitamin D deficiency Status: Chronic Allergies: Coded Allergies: No Known Allergy (Unverified , 11/08/16) Substance Abuse Substance use: other (Alcohol) Substance abuse history: Yes Social History Marital status: single Level of education: HS DPA/Conservatorship: No Occupation/Mcc: Unemployed Psychiatric Objective Eval Review of Systems: Other: Headache Physical Examination: Sleep: Insomnia Appetite: Decreased Energy: Decreased Interest: Adequate Mental Status Examination: Appearance: Groomed Eye Contact: Fair Psychomotor Activity: Agitated Behavior: Cooperative Speech: Clear AFFECT: Anxious Mood: Anxious Though Process: Linear Thought Content: Hallucinations Suicidal: No Homicidal: No On 72 hour hold: No Orientation: x4 Cognition: Alert Insight: Intact Judgement: Intact Attention Span: Intact Laboratory Results Laboratory Tests Test 12/30/16 05:45 White Blood Count 6.910^3/ul Red Blood Count 4.6910^6/ul Hemoglobin 12.3g/dl Hematocrit 37.9% Mean Corpuscular Volume 80.8fl Mean Corpuscular Hemoglobin 26.2pg Mean Corpuscular Hemoglobin Concent 32.5g/dl Red Cell Distribution Width 15.5% Platelet Count 41927^3/UL Mean Platelet Volume 9.1fl Neutrophils % 61.8% Lymphocytes % 26.8% Monocytes % 6.6% Eosinophils % 3.5% Basophils % 0.7% Nucleated Red Blood Cells % 0.0/100WBC Neutrophils # 4.210^3/ul Lymphocytes # 1.810^3/ul Monocytes # 0.510^3/ul Eosinophils # 0.210^3/ul Basophils # 0.110^3/ul Nucleated Red Blood Cells # 0.010^3/ul Urine Color LT. YELLOW Urine Clarity CLEAR Urine pH 6.5 Urine Specific [place] <=1.005 Urine Ketones NEGATIVE Urine Nitrite NEGATIVE Urine Bilirubin NEGATIVE Urine Urobilinogen 0.2 E.U./dL Urine Leukocyte Esterase 1+ Urine Microscopic RBC 2-5/HPF Urine Microscopic WBC 2-5/HPF Urine Squamous Epithelial Cells OCCASIONAL/HPF Urine Hemoglobin 2+ Urine Glucose NEGATIVE% Urine Total Protein NEGATIVE Sodium Level 138mmol/L Potassium Level 3.7mmol/L Chloride Level 101mmol/L Carbon Dioxide Level 25mmol/L Anion Gap 16 Blood Urea Nitrogen 15mg/dl Creatinine 0.62mg/dl Glucose Level 141mg/dl Calcium Level 9.8mg/dl Total Bilirubin 0.5mg/dl Direct Bilirubin 0.00mg/dl Indirect Bilirubin 0.5mg/dl Aspartate Amino Transf (AST/SGOT) 105IU/L Alanine Aminotransferase (ALT/SGPT) 110IU/L Alkaline Phosphatase 180IU/L Total Protein 8.2g/dl Albumin 5.0g/dl Globulin 3.20g/dl Albumin/Globulin Ratio 1.56 Salicylates Level < 1.0mg/dl Urine Opiates Screen Negative Acetaminophen Level < 10.0ug/ml Urine Barbiturates Negative Urine Amphetamines Screen Negative Urine Benzodiazepines Screen Negative Urine Cocaine Screen Negative Urine Cannabinoids Negative Ethyl Alcohol Level < 10.0mg/dl Assessment and Plan Assessment/Diagnosis [place] I: Alcohol hallucinosis Alcohol use disorder, severe [place] II: deferred [place] III: HTN [place] IV: Chronic substance abuse Recommendation/Plan Medication Management Recommend treating hallucinations and any residual alcohol withdrawal symptoms with BZD. Consider adding neuroleptic if hallucinations do not respond to BZD medication. Diazepam 10mg now. Diazepam 5-10mg PO Q6hr PRN alcohol withdrawal Haloperidol 2.5mg-5mg PO BID PRN hallucinations DC Zyprexa Follow-up/Disposition If her voices do not improve then please re-consult psychiatry. Substance abuse services once medically cleared. [id number] Recommendation: RICHARD DANIEL MD Dec 30, 2016 10:16
[2016-12-30] MEDS ORDERED: LORAZEPAM 2 MG INJ IM ONE (11:00)
[2016-12-30] MEDS ORDERED: LORAZEPAM 2 MG INJ IV ONE (11:00)
[2016-12-30] MEDS ORDERED: HYDROCODONE/APAP (5/325) TAB PO ONE (12:30)
--- NOTE | 2016-12-30 13:36 | RADRPT ---
PROCEDURE: CT Brain without contrast. CLINICAL INDICATION: Frontal headaches. Auditory hallucinations. TECHNIQUE: A CT of the brain was performed on a GE Rift.[employer]ge 64-slice CT scanner utilizing axial imaging from the skull base through the vertex without IV contrast. Multiplanar reformatted images were made. Images were reviewed on a PACS workstation. The CTDIvol is 44.68 mGy and the DLP is 630 .2 mGycm. One or the following dose reduction techniques were used: -Automated exposure control. -Adjustment of the mA and/or KV according to patient's size. -Use of iterative reconstruction technique. COMPARISON: CT brain from 11/08/2016. FINDINGS: There is no intracranial hemorrhage, mass effect, or midline shift. No extra-axial fluid collection is seen. The ventricles and sulci are normal in size and configuration. The density of the brain is normal, and the porter white matter differentiation appears well-preserved. The visualized paranasal sinuses and osseous structures are grossly unremarkable. IMPRESSION: 1. No acute intracranial process identified. RPTAT: [facility] Physician Anibal Date Time Electronically viewed and signed by Physician Anibal on 12/30/2016 13:36 /
[2016-12-30] MEDS ORDERED: HALOPERIDOL 5 MG TAB PO ONE (14:30)
--- NOTE | 2016-12-30 18:24 | PSY ---
Date/Time of Note Date/Time of Note DATE: 12/30/16 TIME: 18:15 Psychiatric Subjective Eval Subjective Evaluation Patient location: emergency Chief Complaint: hearing voices - hearing conversation and bothering her, denies HI/SI Reason for consult: Voices History of present illness Pt seen and evaluated. Previous psychiatric note reviewed. Patient reports hallucinations for 2 days and not sleeping for three days. She reports the voices are intermittent, outside of her head, say both positive and negative things about her (the negative are realted to her drinking). These voices carry on a conversation about her as well. She is anxious. Has been sleeping 2 hours a night over the last three days. She denies suicidal ideation and homicidal ideation. Pt has a pattern of binge drinking. She will overindulge for several days and then stop. Her last drink was Monday. She has never had these symptoms previously Past psychiatric history Denies Hospitalization: no Family History Denies Medical history Problems Medical Problems: (1) Acute back pain Status: Acute (2) Acute pain in female pelvis Status: Acute (3) Alcohol abuse Status: Acute (4) Alcohol withdrawal Status: Acute (5) Ankle fracture, right Status: Acute (6) Anxiety Status: Acute (7) Dyspepsia Status: Acute (8) Epigastric abdominal pain Status: Acute (9) Hearing voices Status: Acute (10) Hypertension Status: Chronic (11) Hypothyroid Status: Chronic (12) Medication refill Status: Acute (13) Nausea and vomiting Status: Acute (14) Rectal bleeding Status: Acute (15) Uncontrolled hypertension Status: Acute (16) Vitamin D deficiency Status: Chronic Allergies: Coded Allergies: No Known Allergy (Unverified , 12/30/16) Substance Abuse Substance use: No known substance abuse Substance abuse history: Yes (Aclohol) Social History Marital status: single Level of education: HS DPA/Conservatorship: No Occupation/Halfway: Unemployed Psychiatric Objective Eval Physical Examination: Physical Examination: Applicable Sleep: Insomnia Appetite: Adequate Energy: Adequate Mental Status Examination: Appearance: Groomed Eye Contact: Good Psychomotor Activity: Normal Behavior: Friendly, Cooperative Speech: Clear AFFECT: Appropriate Mood: Appropriate/Full Though Process: Linear Thought Content: Normal, Hallucinations Suicidal: No Homicidal: No On 72 hour hold: No Orientation: x4 Insight: Intact Judgement: Intact Laboratory Results Laboratory Tests Test 12/30/16 05:45 White Blood Count 6.910^3/ul Red Blood Count 4.6910^6/ul Hemoglobin 12.3g/dl Hematocrit 37.9% Mean Corpuscular Volume 80.8fl Mean Corpuscular Hemoglobin 26.2pg Mean Corpuscular Hemoglobin Concent 32.5g/dl Red Cell Distribution Width 15.5% Platelet Count 19803^3/UL Mean Platelet Volume 9.1fl Neutrophils % 61.8% Lymphocytes % 26.8% Monocytes % 6.6% Eosinophils % 3.5% Basophils % 0.7% Nucleated Red Blood Cells % 0.0/100WBC Neutrophils # 4.210^3/ul Lymphocytes # 1.810^3/ul Monocytes # 0.510^3/ul Eosinophils # 0.210^3/ul Basophils # 0.110^3/ul Nucleated Red Blood Cells # 0.010^3/ul Urine Color LT. YELLOW Urine Clarity CLEAR Urine pH 6.5 Urine Specific [place] <=1.005 Urine Ketones NEGATIVE Urine Nitrite NEGATIVE Urine Bilirubin NEGATIVE Urine Urobilinogen 0.2 E.U./dL Urine Leukocyte Esterase 1+ Urine Microscopic RBC 2-5/HPF Urine Microscopic WBC 2-5/HPF Urine Squamous Epithelial Cells OCCASIONAL/HPF Urine Hemoglobin 2+ Urine Glucose NEGATIVE% Urine Total Protein NEGATIVE Sodium Level 138mmol/L Potassium Level 3.7mmol/L Chloride Level 101mmol/L Carbon Dioxide Level 25mmol/L Anion Gap 16 Blood Urea Nitrogen 15mg/dl Creatinine 0.62mg/dl Glucose Level 141mg/dl Calcium Level 9.8mg/dl Total Bilirubin 0.5mg/dl Direct Bilirubin 0.00mg/dl Indirect Bilirubin 0.5mg/dl Aspartate Amino Transf (AST/SGOT) 105IU/L Alanine Aminotransferase (ALT/SGPT) 110IU/L Alkaline Phosphatase 180IU/L Total Protein 8.2g/dl Albumin 5.0g/dl Globulin 3.20g/dl Albumin/Globulin Ratio 1.56 Salicylates Level < 1.0mg/dl Urine Opiates Screen Negative Acetaminophen Level < 10.0ug/ml Urine Barbiturates Negative Urine Amphetamines Screen Negative Urine Benzodiazepines Screen Negative Urine Cocaine Screen Negative Urine Cannabinoids Negative Ethyl Alcohol Level < 10.0mg/dl Assessment and Plan Assessment/Diagnosis [place] I: Unspecified Psychotic Disorder, Alcohol Use Disorder Recommendation/Plan Medication Management Recommend trial fo Gabapentin 300mg po qhs x one week and then increase to 600mg po qhs after one week if tolerates. The idea behind this is that the medication can reduce anxiety and provide some benefit from alcohol withdrawal ( if that is the issue). I would hold on an antipsychotic for now. However, patient needs to follow up with outpatient psychiatry for further evaluation. The most likely issue is patient has anxiety and binge drinks alcohol. She then went several days with very little sleep and began hallucinating. Hopefully, gabapentin may provide some benefit for sleep. To cover all basis, a low dose of Zyprexa 2.5mg po qhs could be offered as well. Encourage patient not to drink and refer to outpatient rehab. Psychotherapy Brief supportive Pt. Caregiver/Family Education N/A Follow-up/Disposition Patient can be discharged to home. It is not clear to me whether this is psychiatric or alcohol related. I am suspecting both. Regardless, she can be referred to outpatient services. She should be informed not to use alcohol and return to the hospital should her symptoms worsen. [id number] Recommendation: Discharge to home CECELIA DAVIS Dec 30, 2016 18:24
[2016-12-30] MEDS ORDERED: OLAN2.5T4 PO (18:38)
[2016-12-30] MEDS ORDERED: GABA300C16 PO (18:38)
[2016-12-30 19:04] VITALS: BP 120/72; PULSE 69; RESP 18; TEMP 98.6
== END 2016-12-30 19:03 | disposition home or self-care (01) ==
LOC: E/R 03:35
DX: R44.0 Auditory hallucinations (principal); R40.2142 Coma scale, eyes open, spontaneous, at arrival to emergency department; R40.2252 Coma scale, best verbal response, oriented, at arrival to emergency department; R40.2362 Coma scale, best motor response, obeys commands, at arrival to emergency department
CPT/HCPCS: 36415; 70450; 80053; 80306; 80307; 81001; 85025; 96372; J2060; Z7502; Z7610

== ENCOUNTER 2017-04-16 12:04 | Inpatient (IN) | payer MEDICAID ==
[~2017-04-16] VITALS: Ht 157.5 cm; Wt 74.7 kg
[~2017-04-16 12:04] MED LIST changes: -ALPR1TAB2 PO; +GABA300C16 PO; +OLAN2.5T28 PO
[2017-04-16] MEDS ORDERED: SOD CHLORIDE 0.9% 1,000 ML IV STA (12:13)
[2017-04-16] MEDS ORDERED: LORAZEPAM 2 MG INJ IV STA (12:13)
[2017-04-16] MEDS ORDERED: THIAMINE 100 MG in SOD CHLORIDE 0.9% 100 ML IVPB STA (12:13)
[2017-04-16 12:55] LABS: BASOPHIL # 0.1 10^3/ul (0.0-0.1); BASOPHILS % 1.6 % (0.0-2.0); EOSINOPHILS # 0.1 10^3/ul (0.0-0.5); EOSINOPHILS % 1.3 % (0.0-7.0); HEMATOCRIT 41.6 % (37.0-47.0); HEMOGLOBIN 13.6 g/dl (12.0-16.0); LYMPHOCYTES # 3.9 10^3/ul (0.8-2.9); LYMPHOCYTES % 51.6 % (15.0-51.0); MEAN CORPUSCULAR HEMOGLOBIN 24.4 pg (29.0-33.0); MEAN CORPUSCULAR HGB CONC 32.7 g/dl (32.0-37.0); MEAN CORPUSCULAR VOLUME 74.6 fl (82.0-101.0); MEAN PLATELET VOLUME 8.3 fl (7.4-10.4); MONOCYTE # 0.5 10^3/ul (0.3-0.9); MONOCYTES % 6.5 % (0.0-11.0); NEUTROPHIL # 2.9 10^3/ul (1.6-7.5); NEUTROPHILS % 38.6 % (39.0-77.0); PLATELET COUNT 323 10^3/UL (140-415); RED BLOOD COUNT 5.58 10^6/ul (4.20-5.40); RED CELL DISTRIBUTION WIDTH 15.8 % (11.5-14.5); WHITE BLOOD COUNT 7.5 10^3/ul (4.8-10.8)
[2017-04-16] MEDS ORDERED: CHLORDIAZEPOXIDE 25 MG CAP PO ONE (13:00)
[2017-04-16 13:19] LABS: ALBUMIN 4.6 g/dl (3.3-4.9); ALBUMIN/GLOBULIN RATIO 1.27; BILIRUBIN,INDIRECT 0.3 mg/dl (0-1.1); BILIRUBIN,TOTAL 0.3 mg/dl (0.2-1.3); CALCIUM 8.2 mg/dl (8.4-10.2); CREATININE 0.69 mg/dl (0.44-1.00); POTASSIUM 3.7 mmol/L (3.5-5.1); TOTAL PROTEIN 8.2 g/dl (6.1-8.1)
[2017-04-16] MEDS ORDERED: LORAZEPAM 2 MG INJ IV ONE (14:00)
--- NOTE | 2017-04-16 14:17 | ERA ---
ER Documentation Chief Complaint Date/Time DATE: 04/16/17 TIME: 14:09 Chief Complaint FEELING SHAKY , UNABLE TO SLEEP , ETOH HPI 46-year-old female with a history of alcoholism presenting with complaints of feeling unwell and unable to sleep for the past 3 nights. She states that when she does not drink alcohol she gets very tremulous and anxious. She has been drinking vodka for the past 3 days. She denies any chest pain, shortness of breath, headache, nausea, vomiting, abdominal pain, hematochezia, or melena. Other than her shakiness and her insomnia, she has no other complaints. ROS All systems reviewed and are negative except as per history of present illness. Medications Home Meds Active Scripts Olanzapine* (Zyprexa*) 2.5 Mg Tablet, 2.5 MG PO QHS, #30 TAB Prov:EAGLE BLANKENSHIP MD 12/30/16 Gabapentin* (Gabapentin*) 300 Mg Capsule, 300 MG PO QHS, #60 CAP Prov:EAGLE BLANKENSHIP MD 12/30/16 Reported Medications Benazepril Hcl* (Benazepril Hcl*) 10 Mg Tablet, 10 MG PO DAILY, #30 TAB 01/01/16 Allergies Allergies: Coded Allergies: No Known Allergy (Unverified , 12/30/16) PMhx/Soc History of Surgery: Yes (23 yrs ago - intestinal Sx) Anesthesia Reaction: No Hx Neurological Disorder: No Hx Respiratory Disorders: No Hx Cardiac Disorders: Yes (htn) Hx Psychiatric Problems: No Hx Miscellaneous Medical Probl: Yes (high cholesterol) Hx Alcohol Use: Yes (etoh abuse) Hx Substance Use: No Hx Tobacco Use: Yes Smoking Status: Current some day smoker FmHx Family History: No diabetes Physical Exam Vitals Vital Signs Date Time Temp Pulse Resp B/P Pulse Ox O2 Delivery O2 Flow Rate FiO2 04/16/17 12:07 98.1 138 18 188/124 98 Physical Exam Const: Smells of alcohol, no apparent distress, tremulous Head: Atraumatic Eyes: Normal Conjunctiva, PERRLA, EOMI ENT: Normal External Ears, Nose and Mouth. Neck: Full range of motion..~ No meningismus. Resp: Clear to auscultation bilaterally Cardio: Tachycardic with regular rhythm, no murmurs. 2+ distal pulses Abd: Soft, non tender, non distended. Normal bowel sounds Skin: No petechiae or rashes Back: No midline or flank tenderness Ext: No cyanosis, or edema Neur: Awake and alert, oriented 3, moving all extremities. Tremulous. Psych: Normal Mood and Affect. No SI or HI. No hallucinations Result Diagram: 04/16/17 1244 04/16/17 1244 Results 24 hrs Laboratory Tests Test 04/16/17 12:44 White Blood Count 7.510^3/ul Red Blood Count 5.5810^6/ul Hemoglobin 13.6g/dl Hematocrit 41.6% Mean Corpuscular Volume 74.6fl Mean Corpuscular Hemoglobin 24.4pg Mean Corpuscular Hemoglobin Concent 32.7g/dl Red Cell Distribution Width 15.8% Platelet Count 11285^3/UL Mean Platelet Volume 8.3fl Neutrophils % 38.6% Lymphocytes % 51.6% Monocytes % 6.5% Eosinophils % 1.3% Basophils % 1.6% Nucleated Red Blood Cells % 0.0/100WBC Neutrophils # 2.910^3/ul Lymphocytes # 3.910^3/ul Monocytes # 0.510^3/ul Eosinophils # 0.110^3/ul Basophils # 0.110^3/ul Nucleated Red Blood Cells # 0.010^3/ul Sodium Level 144mmol/L Potassium Level 3.7mmol/L Chloride Level 100mmol/L Carbon Dioxide Level 23mmol/L Anion Gap 25 Blood Urea Nitrogen 11mg/dl Creatinine 0.69mg/dl Glucose Level 215mg/dl Calcium Level 8.2mg/dl Total Bilirubin 0.3mg/dl Direct Bilirubin 0.00mg/dl Indirect Bilirubin 0.3mg/dl Aspartate Amino Transf (AST/SGOT) 88IU/L Alanine Aminotransferase (ALT/SGPT) 78IU/L Alkaline Phosphatase 145IU/L Total Protein 8.2g/dl Albumin 4.6g/dl Globulin 3.60g/dl Albumin/Globulin Ratio 1.27 Ethyl Alcohol Level 385.0mg/dl Current Medications Medications (Trade) Dose Ordered Sig/Carri Route PRN Reason Start Time Stop Time Status Last Admin Dose Admin Sodium Chloride (NS) 1,000 ml @ 1,000 mls/hr Q1H STAT IV 04/16/17 12:13 04/16/17 13:12 DC 04/16/17 13:08 Lorazepam 1 mg 1 mg ONCE STAT IV 04/16/17 12:13 04/16/17 12:15 DC 04/16/17 13:08 Thiamine HCl/ Sodium Chloride (Vitamin B1/NS) 101 ml @ 50 mls/hr Q2H2M STAT IVPB 04/16/17 12:13 04/16/17 14:14 04/16/17 13:08 Chlordiazepoxide (Librium) 50 mg ONCE ONCE PO 04/16/17 13:00 04/16/17 13:01 DC 04/16/17 13:41 Lorazepam (Ativan) 1 mg ONCE ONCE IV 04/16/17 14:00 04/16/17 14:01 DC Procedures/MDM EKG: Rate/Rhythm: Sinus tachycardia at 113 bpm QRS, ST, T-waves: No changes consistent w/ acute ischemia Impression: No evidence of ischemia or arrhythmia Labs CBC: no anemia or evidence of infection CMP: Notable for transaminitis. No evidence of electrolyte abnormality, renal failure, hypoglycemia. ETOH 385 Imaging Chest x-ray shows no acute abnormalities MDM Patient is presenting with signs and symptoms of alcohol withdrawal with vitals notable for hypertension and tachycardia. There is no evidence of delirium tremens. However the patient's alcohol level is very high and she is already showing symptoms of withdrawal. Ativan IV and IV fluids were started. She was given Librium 50 mg p.o. She had mild improvement of her symptoms but worse persistently tachycardic and tremulous. Her mental status remained normal. However I believe the patient is at high risk for severe withdrawal symptoms if she goes home today. She will benefit from admission and alcohol detoxification being monitored on telemetry. Critical Care Time: 35 minutes Treatments/Evaluations: Close monitoring and treatment of unstable vital signs, cardiorespiratory, and neurologic status, while maintaining tight balance of fluid, respiratory, and cardiac interventions. This time includes discussing the case with the patient and the patients family. This time does not include all procedures stated elsewhere in this record. This time also includes reviewing old records, labs and radiological studies. This time includes examining and re-examining the patient. Additionally, this time also includes arranging care with admitting and consulting physicians. Accepting Care Team: Current data and ongoing care discussed. Time: Time of admission Primary Provider: Travis Consulting: None Outstanding Data: none Departure Diagnosis: Primary Impression: Alcohol withdrawal syndrome Qualified Code: F10.230 - Alcohol withdrawal syndrome without complication Condition: Serious GERALD CHASE MD Apr 16, 2017 14:17
[2017-04-16] MEDS ORDERED: ONDANSETRON 4 MG INJ IV PRN ×2 (14:30→21:00)
[2017-04-16] MEDS ORDERED: ACETAMINOPHEN 325 MG TAB PO PRN (14:30)
--- NOTE | 2017-04-16 17:20 | RADRPT ---
PROCEDURE: XR Chest. CLINICAL INDICATION: Evaluate for pneumonia TECHNIQUE: Single frontal view of the chest was obtained COMPARISON: 11/08/2016 FINDINGS: No pleural effusion or pneumothorax. No consolidation. Low lung volumes with bibasilar atelectasis. Stable top normal cardiomediastinal silhouette. No acute osseous abnormality. IMPRESSION: No acute cardiopulmonary disease. Low lung volumes with bibasilar atelectasis. RPTAT: EE Physician Leora Date Time Electronically viewed and signed by Christina Holt Physician on 04/16/2017 17:20 /
[2017-04-16 17:42] VITALS: TEMP 98.1
[2017-04-16 18:57] VITALS: PULSE 86
[2017-04-16 20:23] VITALS: PULSE 83
[2017-04-16 20:31] VITALS: BP 139/88; RESP 20
[2017-04-16 21:00] VITALS: Ht 157.5 cm; Wt 74.7 kg
[2017-04-16] MEDS ORDERED: LORAZEPAM 2 MG INJ IV PRN (21:00)
[2017-04-16] MEDS: CHLORDIAZEPOXIDE 25 MG CAP PO SCH (23:06)
[2017-04-17] VITALS (12 sets, daily range): BP systolic 126–171; BP diastolic 69–94; PULSE 84–97; RESP 18–20
--- NOTE | 2017-04-17 06:46 | HP ---
Date/Time of Note Date/Time of Note DATE: 04/17/17 TIME: 06:39 Assessment/Plan VTE Prophylaxis VTE Prophylaxis Intervention: SCD's Lines/Catheters IV [facility] Saline Lock Urinary Cath still in place: No Assessment/Plan Assessment/Plan ASSESSMENT 46-year-old female with a history of hypertension, hypothyroidism, dyslipidemia , type 2 diabetes and alcohol abuse who presented with anxiety and tremulousness , secondary to alcohol intoxication and withdrawal. PLAN Banana bag alternating with IV fluid [facility] to help with abstinence from alcohol Insulin while in-house for diabetes HPI/ROS Admit Date/Time Admit Date/Time Apr 16, 2017 at 14:29 Hx of Present Illness This is a 46-year-old female with a history of hypertension, dyslipidemia, hypothyroidism, type 2 diabetes who presented to emergency department complaining of anxiety and tremulousness. She said she has been drinking heavily almost on a daily basis. When she presented to the ER BP was 188/124 with a heart rate of 138. Blood alcohol level almost 0.4. PMH/Family/Social Past Medical History Medical History: diabetes, hypertension, hyperthyroid, hypothyroid Past Surgical History Past Surgical Hx: other Social History Alcohol Use: heavy Smoking Status: Never smoker Drug Use: none Exam/Review of Systems Vital Signs Vitals Vital Signs Date Time Temp Pulse Resp B/P Pulse Ox O2 Delivery O2 Flow Rate FiO2 04/17/17 04:34 98.0 92 20 126/69 96 04/16/17 18:32 Room Air Exam Constitutional: other (Appears anxious) Head: atraumatic, normocephalic Eyes: EOMI, PERRL Respiratory: clear to auscultation, normal air movement Cardiovascular: other (Tachycardic with regular rhythm) Gastrointestinal: non-tender, soft Extremities: other (Upper extremity tremors noted) Labs Result Diagram: 04/16/17 1244 04/16/17 1244 Medications Medications Current Medications Chlordiazepoxide (Librium) 75 mg TID PO Last administered on 04/16/17 23:06; Admin Dose 75 MG; Start 04/16/17 at 21:00 Lorazepam (Ativan) 2 mg Q1H PRN IV Withdrawals Last administered on 04/17/17 02:11; Admin Dose 2 MG; Start 04/16/17 at 21:00 Ondansetron HCl 4 mg 4 mg Q6H PRN IV NAUSEA AND/OR VOMITING; Start 04/16/17 at 21:00 Thiamine HCl/ Folic Acid/ Multivitamins/ Dextrose/Sodium Chloride (Vitamin B1/ Folic Acid/Mvi Adult/D5-1/2ns) 1,011.2 ml @ 125 mls/ hr DAILY@09 IV ; Start at 09:00 MAY MCGUIRE MD Apr 17, 2017 06:46
[2017-04-17] MEDS: CHLORDIAZEPOXIDE 25 MG CAP PO SCH ×3 (08:57→20:51)
[2017-04-17] MEDS ORDERED: THIAMINE IV SCH (09:00)
[2017-04-17] MEDS ORDERED: FOLIC ACID IV SCH (09:00)
[2017-04-17] MEDS ORDERED: [UNRECOGNIZED DRUG - OTHER] IV SCH (09:00)
[2017-04-17] MEDS ORDERED: MULTIVITAMINS IV SCH (09:00)
[2017-04-17] MEDS: FOLIC ACID 1 MG TAB PO SCH (10:49)
[2017-04-17] MEDS: THIAMINE 500 MG in SOD CHLORIDE 0.9% 250 ML IV SCH ×2 (11:27→23:00)
[2017-04-17] MEDS ORDERED: THIAMINE 200 MG INJ IVPB SCH (21:00)
[2017-04-17] MEDS ORDERED: ACETAMINOPHEN 325 MG TAB PO PRN (23:00)
[2017-04-18] VITALS (9 sets, daily range): BP systolic 134–161; BP diastolic 85–93; PULSE 69–99; RESP 17–20
[2017-04-18 07:44] LABS: BASOPHILS % 0.6 % (0.0-2.0); EOSINOPHILS # 0.4 10^3/ul (0.0-0.5); EOSINOPHILS % 9.5 % (0.0-7.0); HEMATOCRIT 35.3 % (37.0-47.0); HEMOGLOBIN 11.3 g/dl (12.0-16.0); LYMPHOCYTES # 1.9 10^3/ul (0.8-2.9); LYMPHOCYTES % 40.3 % (15.0-51.0); MEAN CORPUSCULAR HEMOGLOBIN 24.9 pg (29.0-33.0); MEAN CORPUSCULAR VOLUME 77.8 fl (82.0-101.0); MEAN PLATELET VOLUME 8.7 fl (7.4-10.4); MONOCYTE # 0.2 10^3/ul (0.3-0.9); MONOCYTES % 4.1 % (0.0-11.0); NEUTROPHIL # 2.1 10^3/ul (1.6-7.5); NEUTROPHILS % 45.3 % (39.0-77.0); PLATELET COUNT 166 10^3/UL (140-415); RED BLOOD COUNT 4.54 10^6/ul (4.20-5.40); RED CELL DISTRIBUTION WIDTH 15.3 % (11.5-14.5); WHITE BLOOD COUNT 4.6 10^3/ul (4.8-10.8)
[2017-04-18 08:03] LABS: ALBUMIN 3.7 g/dl (3.3-4.9); ALBUMIN/GLOBULIN RATIO 1.12; BILIRUBIN,INDIRECT 0.4 mg/dl (0-1.1); BILIRUBIN,TOTAL 0.4 mg/dl (0.2-1.3); CALCIUM 8.3 mg/dl (8.4-10.2); CREATININE 0.62 mg/dl (0.44-1.00); POTASSIUM 3.1 mmol/L (3.5-5.1)
[2017-04-18] MEDS: FOLIC ACID 1 MG TAB PO SCH (09:20)
[2017-04-18] MEDS: THIAMINE 500 MG in SOD CHLORIDE 0.9% 250 ML IV SCH (09:20)
[2017-04-18] MEDS: CHLORDIAZEPOXIDE 25 MG CAP PO SCH ×2 (09:21→12:58)
--- NOTE | 2017-04-18 16:27 | PDOCDIS ---
Discharge Instructions DIAGNOSIS Discharge Diagnosis Alcohol withdrawal CONDITION Patient Condition: Good HOME CARE INSTRUCTIONS: Diet Instructions: RegularSpecial Diet: regular FOLLOW UP/APPOINTMENTS Follow-up Plan It is very important to follow up with a primary care doctor for management of your high blood pressure Avoid alcohol ROSA PEREYRA MD Apr 18, 2017 16:27
--- NOTE | 2017-04-18 16:28 | DS ---
Date/Time of Note Date/Time of Note DATE: 04/18/17 TIME: 16:27 Discharge Summary Admission/Discharge Info Admit Date/Time Apr 16, 2017 at 14:29 Discharge Date/Time Discharge Diagnosis Alcohol withdrawal Hx of Present Illness This is a 46-year-old female with a history of hypertension, dyslipidemia, hypothyroidism, type 2 diabetes who presented to emergency department complaining of anxiety and tremulousness. She said she has been drinking heavily almost on a daily basis. When she presented to the ER BP was 188/124 with a heart rate of 138. Blood alcohol level almost 0.4. Hospital Course The patient was given librium for management of alcohol wihtdrawal. Her withdrawal was mild and resolved by HOD 2. She was discharged with follow up in primary care clinic for managment of her hypertension Home Meds Active Scripts Olanzapine* (Zyprexa*) 2.5 Mg Tablet, 2.5 MG PO QHS, #30 TAB Prov:EAGLE BLANKENSHIP MD 12/30/16 Gabapentin* (Gabapentin*) 300 Mg Capsule, 300 MG PO QHS, #60 CAP Prov:EAGLE BLANKENSHIP MD 12/30/16 Reported Medications Benazepril Hcl* (Benazepril Hcl*) 10 Mg Tablet, 10 MG PO DAILY, #30 TAB 01/01/16 Follow-up Plan It is very important to follow up with a primary care doctor for management of your high blood pressure Avoid alcohol Primary Care Provider Care Physician No Primary Pending Labs Laboratory Tests Test 04/18/17 06:58 White Blood Count 4.610^3/ul (4.8-10.8) Red Blood Count 4.5410^6/ul (4.20-5.40) Hemoglobin 11.3g/dl (12.0-16.0) Hematocrit 35.3% (37.0-47.0) Mean Corpuscular Volume 77.8fl (82.0-101.0) Mean Corpuscular Hemoglobin 24.9pg (29.0-33.0) Mean Corpuscular Hemoglobin Concent 32.0g/dl (32.0-37.0) Red Cell Distribution Width 15.3% (11.5-14.5) Platelet Count 05203^3/UL (140-415) Mean Platelet Volume 8.7fl (7.4-10.4) Neutrophils % 45.3% (39.0-77.0) Lymphocytes % 40.3% (15.0-51.0) Monocytes % 4.1% (0.0-11.0) Eosinophils % 9.5% (0.0-7.0) Basophils % 0.6% (0.0-2.0) Nucleated Red Blood Cells % 0.0/100WBC (0.0-0.0) Neutrophils # 2.110^3/ul (1.6-7.5) Lymphocytes # 1.910^3/ul (0.8-2.9) Monocytes # 0.210^3/ul (0.3-0.9) Eosinophils # 0.410^3/ul (0.0-0.5) Basophils # 0.010^3/ul (0.0-0.1) Nucleated Red Blood Cells # 0.010^3/ul (0.0-0.0) Sodium Level 140mmol/L (135-144) Potassium Level 3.1mmol/L (3.5-5.1) Chloride Level 103mmol/L (97-110) Carbon Dioxide Level 22mmol/L (21-31) Anion Gap 18 (8-16) Blood Urea Nitrogen 7mg/dl (7-20) Creatinine 0.62mg/dl (0.44-1.00) Glucose Level 116mg/dl (70-220) Calcium Level 8.3mg/dl (8.4-10.2) Total Bilirubin 0.4mg/dl (0.2-1.3) Direct Bilirubin 0.00mg/dl (0.00-0.20) Indirect Bilirubin 0.4mg/dl (0-1.1) Aspartate Amino Transf (AST/SGOT) 72IU/L (15-46) Alanine Aminotransferase (ALT/SGPT) 63IU/L (13-69) Alkaline Phosphatase 134IU/L (42-121) Total Protein 7.0g/dl (6.1-8.1) Albumin 3.7g/dl (3.3-4.9) Globulin 3.30g/dl (1.3-3.2) Albumin/Globulin Ratio 1.12 ROSA PEREYRA MD Apr 18, 2017 16:28
== END 2017-04-18 18:42 | disposition home or self-care (01) | DRG 897 ==
LOC: E/R 12:04 → MS4 14:29
PROVIDERS: ADMIT Internal Medicine; ATTEND Internal Medicine
DX: F10.239 Alcohol dependence with withdrawal, unspecified (principal); I10 Essential (primary) hypertension; F10.229 Alcohol dependence with intoxication, unspecified; Y90.8 Blood alcohol level of 240 mg/100 ml or more; E78.5 Hyperlipidemia, unspecified; E03.9 Hypothyroidism, unspecified; E11.9 Type 2 diabetes mellitus without complications; Z72.0 Tobacco use; E55.9 Vitamin D deficiency, unspecified
CPT/HCPCS: 71010; 80053; 80306; 82962; 84703; 85025; 93005; J2060; J2405; J3411; J7030; J7042; J7050

== ENCOUNTER 2017-08-08 09:10 | Emergency (ER) | END 2017-08-08 16:29 | disposition home or self-care (01) ==

== ENCOUNTER 2018-04-01 09:53 | Emergency (ER) | END 2018-04-01 14:36 | disposition home or self-care (01) ==